=== PATIENT | female | born 1950 | race Caucasian/White ===

== ENCOUNTER 2020-12-25 14:25 | Outpatient (NON) | payer MEDICARE, SELFPAY ==
[2020-12-25 15:10] LABS: Basophils Absolute Auto 0.04 K/mm3 (0.00-0.10); Basophils Percent Auto 0.6 % (0.0-1.0); Eosinophils Absolute Auto 0.13 K/mm3 (0.02-0.50); Hematocrit 33.7 % (35.0-42.0); Hemoglobin 10.5 g/dL (11.7-13.8); Immature Granulocyte Absolute 0.02 K/mm3 (0.00-0.00); Immature Granulocyte Percent A 0.3 % (0.0-0.0); Lymphocytes Absolute Auto 1.16 K/mm3 (1.10-4.50); Lymphocytes Percent Auto 18.1 % (18.0-42.0); Mean Corpuscular HGB Conc 31.2 g/dL (32.0-36.0); Mean Corpuscular Hemoglobin 27.8 pg (27.0-31.0); Mean Corpuscular Volume 89.2 fL (78.0-102.0); Mean Platelet Volume 9.7 fl (9.2-11.8); Monocytes Absolute Auto 0.69 K/mm3 (0.10-0.90); Monocytes Percent Auto 10.8 % (2.0-11.0); Neutrophils Absolute Auto 4.4 K/mm3 (1.7-7.2); Neutrophils Percent Auto 68.2 % (50.0-70.0); Platelet Count Result 321 K/mm3 (150-420); Red Blood Count 3.78 M/mm3 (4.20-5.40); Red Cell Distribution Width 14.6 % (11.6-14.4); White Blood Count 6.4 K/mm3 (4.8-10.8)
[2020-12-25 15:51] LABS: Alanine Aminotransferase 33 U/L (14-59); Albumin Level 3.2 g/dL (3.4-5.0); Alkaline Phosphatase 175 U/L (46-116); Anion Gap 11 mmol/L (8-16); Aspartate Amino Transferase 22 U/L (15-37); Bilirubin,Total 0.3 mg/dL (0.00-1.00); Blood Urea Nitrogen 36 mg/dL (7-18); CRP 0.7 mg/dL (0.0-0.9); Calcium 9.3 mg/dL (8.5-10.1); Carbon Dioxide 24 mmol/L (21-32); Chloride 101 mmol/L (98-108); Estimated Glomerular Filt Rate 58; Glucose 111 mg/dL (70-99); Osmolality Calculated 291 mOsm/kg (285-295); Potassium 4.4 mmol/L (3.5-5.1); Sodium 136 mmol/L (136-145); Total Protein 6.2 g/dL (6.4-8.2)
[2020-12-25 16:10] LABS: Erythrocyte Sedimentation Rate 36 mm/hr (0-20)
== END 2020-12-25 14:26 ==
DX: T84.7XXA Infection and inflammatory reaction due to other internal orthopedic prosthetic devices, implants and grafts, initial encounter (principal)
CPT/HCPCS: 36415; 80053; 85025; 85652; 86140

== ENCOUNTER 2021-01-01 16:40 | Outpatient (NON) | payer MEDICARE, SELFPAY ==
[2021-01-01 17:35] LABS: Basophils Absolute Auto 0.03 K/mm3 (0.00-0.10); Basophils Percent Auto 0.6 % (0.0-1.0); Eosinophils Absolute Auto 0.14 K/mm3 (0.02-0.50); Eosinophils Percent Auto 2.9 % (1.0-6.0); Hematocrit 35.7 % (35.0-42.0); Hemoglobin 11.4 g/dL (11.7-13.8); Immature Granulocyte Absolute 0.01 K/mm3 (0.00-0.00); Immature Granulocyte Percent A 0.2 % (0.0-0.0); Lymphocytes Absolute Auto 1.06 K/mm3 (1.10-4.50); Lymphocytes Percent Auto 21.8 % (18.0-42.0); Mean Corpuscular HGB Conc 31.9 g/dL (32.0-36.0); Mean Corpuscular Hemoglobin 27.6 pg (27.0-31.0); Mean Corpuscular Volume 86.4 fL (78.0-102.0); Mean Platelet Volume 10.1 fl (9.2-11.8); Monocytes Absolute Auto 0.51 K/mm3 (0.10-0.90); Monocytes Percent Auto 10.5 % (2.0-11.0); Neutrophils Absolute Auto 3.1 K/mm3 (1.7-7.2); Platelet Count Result 296 K/mm3 (150-420); Red Blood Count 4.13 M/mm3 (4.20-5.40); Red Cell Distribution Width 14.5 % (11.6-14.4); White Blood Count 4.9 K/mm3 (4.8-10.8)
[2021-01-01 17:42] LABS: Alanine Aminotransferase 34 U/L (14-59); Albumin Level 3.5 g/dL (3.4-5.0); Alkaline Phosphatase 188 U/L (46-116); Anion Gap 12 mmol/L (8-16); Aspartate Amino Transferase 18 U/L (15-37); Bilirubin,Total 0.3 mg/dL (0.00-1.00); Blood Urea Nitrogen 33 mg/dL (7-18); Calcium 9.6 mg/dL (8.5-10.1); Carbon Dioxide 23 mmol/L (21-32); Chloride 100 mmol/L (98-108); Estimated Glomerular Filt Rate 50; Glucose 124 mg/dL (70-99); Osmolality Calculated 288 mOsm/kg (285-295); Potassium 4.3 mmol/L (3.5-5.1); Sodium 135 mmol/L (136-145); Total Protein 6.6 g/dL (6.4-8.2)
[2021-01-01 18:33] LABS: Erythrocyte Sedimentation Rate 28 mm/hr (0-20)
== END 2021-01-01 16:41 ==
DX: T84.52XA Infection and inflammatory reaction due to internal left hip prosthesis, initial encounter (principal); Z79.2 Long term (current) use of antibiotics
CPT/HCPCS: 36415; 80053; 85025; 85652

== ENCOUNTER 2021-01-08 16:25 | Outpatient (NON) | payer MEDICARE, SELFPAY ==
[2021-01-08 16:59] LABS: Basophils Absolute Auto 0.06 K/mm3 (0.00-0.10); Eosinophils Absolute Auto 0.18 K/mm3 (0.02-0.50); Eosinophils Percent Auto 3.1 % (1.0-6.0); Hematocrit 33.7 % (35.0-42.0); Hemoglobin 10.6 g/dL (11.7-13.8); Immature Granulocyte Absolute 0.03 K/mm3 (0.00-0.00); Immature Granulocyte Percent A 0.5 % (0.0-0.0); Lymphocytes Absolute Auto 1.46 K/mm3 (1.10-4.50); Lymphocytes Percent Auto 24.8 % (18.0-42.0); Mean Corpuscular HGB Conc 31.5 g/dL (32.0-36.0); Mean Corpuscular Hemoglobin 27.4 pg (27.0-31.0); Mean Corpuscular Volume 87.1 fL (78.0-102.0); Mean Platelet Volume 10.2 fl (9.2-11.8); Monocytes Absolute Auto 0.72 K/mm3 (0.10-0.90); Monocytes Percent Auto 12.2 % (2.0-11.0); Neutrophils Absolute Auto 3.4 K/mm3 (1.7-7.2); Neutrophils Percent Auto 58.4 % (50.0-70.0); Platelet Count Result 324 K/mm3 (150-420); Red Blood Count 3.87 M/mm3 (4.20-5.40); Red Cell Distribution Width 14.3 % (11.6-14.4); White Blood Count 5.9 K/mm3 (4.8-10.8)
[2021-01-08 17:12] LABS: Alanine Aminotransferase 30 U/L (14-59); Albumin Level 3.4 g/dL (3.4-5.0); Alkaline Phosphatase 199 U/L (46-116); Anion Gap 12 mmol/L (8-16); Aspartate Amino Transferase 23 U/L (15-37); Bilirubin,Total 0.3 mg/dL (0.00-1.00); Blood Urea Nitrogen 33 mg/dL (7-18); CRP < 0.5 mg/dL (0.0-0.9); Calcium 9.2 mg/dL (8.5-10.1); Carbon Dioxide 24 mmol/L (21-32); Chloride 99 mmol/L (98-108); Estimated Glomerular Filt Rate 55; Glucose 70 mg/dL (70-99); Osmolality Calculated 285 mOsm/kg (285-295); Potassium 3.9 mmol/L (3.5-5.1); Sodium 135 mmol/L (136-145); Total Protein 6.3 g/dL (6.4-8.2)
[2021-01-08 18:25] LABS: Erythrocyte Sedimentation Rate 2 mm/hr (0-20)
== END 2021-01-08 16:26 | disposition home or self-care (01) ==
DX: T84.7XXD Infection and inflammatory reaction due to other internal orthopedic prosthetic devices, implants and grafts, subsequent encounter (principal); Z79.2 Long term (current) use of antibiotics
CPT/HCPCS: 36415; 80053; 85025; 85652; 86140

== ENCOUNTER 2021-01-15 14:08 | Outpatient (NON) | payer MEDICARE, SELFPAY ==
[2021-01-15 15:42] LABS: Basophils Absolute Auto 0.05 K/mm3 (0.00-0.10); Basophils Percent Auto 1.1 % (0.0-1.0); Eosinophils Absolute Auto 0.22 K/mm3 (0.02-0.50); Eosinophils Percent Auto 4.7 % (1.0-6.0); Hematocrit 34.3 % (35.0-42.0); Hemoglobin 10.7 g/dL (11.7-13.8); Immature Granulocyte Absolute 0.02 K/mm3 (0.00-0.00); Immature Granulocyte Percent A 0.4 % (0.0-0.0); Lymphocytes Absolute Auto 1.05 K/mm3 (1.10-4.50); Lymphocytes Percent Auto 22.2 % (18.0-42.0); Mean Corpuscular HGB Conc 31.2 g/dL (32.0-36.0); Mean Corpuscular Hemoglobin 27.4 pg (27.0-31.0); Mean Corpuscular Volume 87.9 fL (78.0-102.0); Mean Platelet Volume 10.1 fl (9.2-11.8); Monocytes Absolute Auto 0.54 K/mm3 (0.10-0.90); Monocytes Percent Auto 11.4 % (2.0-11.0); Neutrophils Absolute Auto 2.9 K/mm3 (1.7-7.2); Neutrophils Percent Auto 60.2 % (50.0-70.0); Platelet Count Result 359 K/mm3 (150-420); Red Cell Distribution Width 14.6 % (11.6-14.4); White Blood Count 4.7 K/mm3 (4.8-10.8)
[2021-01-15 15:44] LABS: Alanine Aminotransferase 37 U/L (14-59); Albumin Level 3.3 g/dL (3.4-5.0); Alkaline Phosphatase 210 U/L (46-116); Anion Gap 10 mmol/L (8-16); Aspartate Amino Transferase 24 U/L (15-37); Bilirubin,Total 0.3 mg/dL (0.00-1.00); Blood Urea Nitrogen 30 mg/dL (7-18); CRP < 0.5 mg/dL (0.0-0.9); Calcium 9.7 mg/dL (8.5-10.1); Carbon Dioxide 24 mmol/L (21-32); Chloride 101 mmol/L (98-108); Estimated Glomerular Filt Rate > 60; Glucose 80 mg/dL (70-99); Osmolality Calculated 285 mOsm/kg (285-295); Sodium 135 mmol/L (136-145); Total Protein 6.4 g/dL (6.4-8.2)
[2021-01-15 16:54] LABS: Erythrocyte Sedimentation Rate 26 mm/hr (0-20)
== END 2021-01-15 14:09 ==
DX: T84.52XA Infection and inflammatory reaction due to internal left hip prosthesis, initial encounter (principal)
CPT/HCPCS: 36415; 80053; 85025; 85652; 86140